=== PATIENT | male | born 1955 | race Caucasian/White ===

== ENCOUNTER 2017-01-31 01:17 | Emergency (ER) | payer SELFPAY ==
--- NOTE | 2017-01-31 06:49 | ER ---
ADMIT: 01/31/2017 RM/LOC: ER [facility] MR#: [id number] [address] [address] [place] [address] CELL Emergency Room Report SEX: M AGE: 61 : 1955 DATE: 01/31/2017 The patient is a 61-year-old male with diabetes and neuropathy complaining of left second toe ulcer and diffuse body aches. The patient states he is at times compliant with his medications, other times not. Denies any fevers, chills, cough, nausea, or vomiting. Exam is remarkable for nontoxic, afebrile male, in no acute distress. Left second toe diabetic ulcer and excoriation noted. Filthy feet in plastic clogs, no socks. No evidence of Homans sign or ascending lymphangitis. X-ray, left foot, negative for obvious osteomyelitis. Chest x-ray unremarkable. EKG sinus rhythm without ST-T or Q-wave change. Normal CBC, CMP, except for glucose 251, creatinine 1.1, lactic 1.7. CK elevated at 659, CRP 1.41, BN peptide 130. Procalcitonin less than 0.05. INR less than 1.0. UA negative. The patient was given Zosyn until he developed pruritus, but no rash, then discontinued. Vancomycin 1750 mg administered. Wound was cleansed and dressed with mupirocin. Told to do the same t.i.d. for at least a week. Doxycycline 100 mg b.i.d., [place]. [place] [address] [place].o. for probable low vitamin D level, level is pending, then 37819 units daily, #30. Follow up with Dr. Sommer this week for ongoing tests and vitamin D level result. Kamaljit Rashid MD/ abby JOB #: [id number] CC: Kamaljit Rashid MD, Attending Physician Darien Sommer MD, Family Physician Darien Sommer MD
== END 2017-01-31 05:45 | disposition home or self-care (01) ==
LOC: ER 01:17
DX: E11.621 Type 2 diabetes mellitus with foot ulcer (principal); L97.529 Non-pressure chronic ulcer of other part of left foot with unspecified severity; I10 Essential (primary) hypertension; Z79.84 Long term (current) use of oral hypoglycemic drugs; Z79.4 Long term (current) use of insulin; Z79.899 Other long term (current) drug therapy

== ENCOUNTER 2017-02-15 14:02 | Emergency (ER) | payer SELFPAY ==
--- NOTE | 2017-02-21 15:16 | ER ---
ADMIT: 02/15/2017 RM/LOC: ER [facility] MR#: [id number] [address] [address] [place] [address] Emergency Room Report SEX: M AGE: 61 : 1955 DATE: 02/15/2017 ADDENDUM: This patient comes into the ER because he recently had an infection in his right 2nd toe. Today, he was taking off his sock and part of the skin came off and he noticed that it was read. He just finished taking doxycycline for the infection in his toe. On physical exam, it does look like part of a blister came off the right 2nd toe in the fat pad. It does not appear to be red or swollen or infected. We did set him up with [facility] to evaluate and to make sure that it is healing. Please see my T-sheet. KAM Lanza / Haile Maxwell MD / brendenl JOB #: [id number] CC: Haile Maxwell MD, Attending Physician Darien Sommer MD, Family Physician
== END 2017-02-15 14:50 | disposition home or self-care (01) ==
LOC: ER 14:02
DX: Z48.00 Encounter for change or removal of nonsurgical wound dressing (principal); I10 Essential (primary) hypertension; E11.40 Type 2 diabetes mellitus with diabetic neuropathy, unspecified; Z79.4 Long term (current) use of insulin; Z79.84 Long term (current) use of oral hypoglycemic drugs; Z79.899 Other long term (current) drug therapy